=== PATIENT | male | born 1965 | race Caucasian/White ===

== ENCOUNTER → 2017-10-16 | Day surgery (SDC) | payer OTHER ==
[~2017-10-16] VITALS: Ht 188 cm; Wt 100.0 kg
[~2017-10-16] MED LIST: AMPICILLIN/SULBAC 3 GM/NS 100 ML IV PRN; BACTOIN EACH NARE; BENZ1CAP54 PO; CEFP250T PO; CHLORHEXIDINE GLUCONATE 2 % 1 PACK (2 CLOTHS) TOPICAL PRN; FISH500C PO; FLUT50SP EACH NARE; INSULIN HUMAN REGULAR 1,000 UNITS/10 ML VIAL SQ PRN; LACTATED RINGER'S 1000 ML IV PRN; METOPROLOL TARTRATE 25 MG TAB PO PRN; POVIDONE IODINE 5% (ANTISEPSIS KIT) 4 APPLICATIONS EACH NARE PRN; SODIUM CHLORID 0.9% 500 ML IV PRN
[2017-10-16 10:22] VITALS: BP 170/110; PULSE 73; RESP 16; TEMP 98.2; O2SAT 99
--- NOTE | 2017-10-17 16:03 | EKG ---
Date Performed: 10/16/2017 Time Performed: 10:36:36 PTAGE: 52 years EKG: Sinus rhythm INCOMPLETE RIGHT BUNDLE BRANCH BLOCK BORDERLINE ECG NO PREVIOUS TRACING DOCTOR: Darin Grey Interpretating Date/Time 10/17/2017 16:02:53
== END | disposition home or self-care (01) ==
LOC: PHSDC 06:52
PROVIDERS: ATTEND Otolaryngology
DX: R22.1 Localized swelling, mass and lump, neck (principal); J32.8 Other chronic sinusitis; R09.81 Nasal congestion; Z01.810 Encounter for preprocedural cardiovascular examination; Z53.09 Procedure and treatment not carried out because of other contraindication
CPT/HCPCS: 93005; 99211; J7120; G0463